=== PATIENT | female | born 1970 | race Two or more races ===

== ENCOUNTER 2020-08-14 06:00 | Day surgery (SDC) | payer OTHER | END 2020-08-14 18:40 | disposition home or self-care (01) | LOC: CIR.AMB 06:00 | PROVIDERS: ATTEND Orthopaedic Surgery Hand Surgery | DX: D48.1 Neoplasm of uncertain behavior of connective and other soft tissue (principal); Z20.828 Contact with and (suspected) exposure to other viral communicable diseases ==